=== PATIENT | male | born 1960 | race Caucasian/White ===

== ENCOUNTER 2017-01-24 02:27 | Emergency (ER) | payer SELFPAY ==
[~2017-01-24] VITALS: Ht 175.3 cm; Wt 80.0 kg
[~2017-01-24 02:27] MED LIST: BACT800T5 PO; MECL12.574 PO; ZOFR4TAB PO
[2017-01-24 02:29] VITALS: BP 147/93; PULSE 56; RESP 16; O2SAT 97
[2017-01-24] MEDS ORDERED: TETANUS/DIPHTHERIA TOXOID ADULT 0.5 ML VIAL IM ONE (03:15)
[2017-01-24] MEDS ORDERED: CLINDAMYCIN INJ 600 MG in SODIUM CHLORIDE 0.9% INJ 100 ML IV ONE (03:15)
--- NOTE | 2017-01-24 03:15 | PD ---
HPI Chief Complaint: Injury Time Seen by Provider: 03:11 Travel History International Travel<30 days: No Contact w/Intl Traveler<30days: No Traveled to known affect area: No History of Present Illness HPI 57-year-old [id number] white male presents to emergency department with a 2 day history of right index finger pain and swelling. He does not recall any injury. 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 He states that he had pain on both the volar and dorsal surfaces of the index finger more so at the PIP joint. He denies any fever or chills. He has had a cold here recently. This has consisted of runny nose, cough and congestion. No prior injury. Not up-to-date. PFSH Past Medical History Narrative Medical Anxiety, depression, borderline blood pressure Anxiety: Yes Depression: Yes Diminished Hearing: No Hypertension: Yes Psychiatric: Yes Immunizations Current: Yes Tetanus Vaccination: Unknown Influenza Vaccination: No Past Surgical History Abdominal Surgery: Yes (HERNIA REPAIR) Social History Alcohol Use: Yes (OCCASIONAL) Tobacco Use: Yes (1 ppd) Substance Use: No Allergies-Medications (Allergen,Severity, Reaction): Coded Allergies: No Known Allergies (Verified , 01/24/17) Reported Meds & Prescriptions Reported Meds & Active Scripts Active No Active Prescriptions or Reported Medications Review of Systems Except as stated in HPI: all other systems reviewed are Neg Physical Exam Narrative GENERAL: Well-developed, well-nourished in no acute distress. Nontoxic appearing. HEAD: Normocephalic, atraumatic. EYES: Pupils equal round and reactive. Extraocular motions intact. No scleral icterus. No injection or drainage. ENT: TMs clear without erythema. The external auditory canals clear. Nose: clear . Posterior pharynx is pink and moist. No tonsillar edema or exudate. Uvula midline. Airway patent. NECK: Trachea midline.Supple, nontender, moves head freely. No central bony tenderness or spasm. CARDIOVASCULAR: Regular rate and rhythm without murmurs, gallops, or rubs. RESPIRATORY: Clear to auscultation. Breath sounds equal bilaterally. No wheezes , rales, or rhonchi. GASTROINTESTINAL: Abdomen soft, non-tender, nondistended. No hepato-splenomegaly , or palpable masses. No guarding. EXTREMITIES: No clubbing, cyanosis. Examination the right hand reveals mild to moderate swelling of the index finger with tenderness to the volar surface of the PIP joint and mild tenderness on the dorsal surface. He has limited flexion but full extension. No pain at the MCP joint. Mild discomfort at the DIP. There is no fluctuance or pointing. There is no significant erythema or warmth. He has good Refill. No evidence of any puncture wounds. BACK: Nontender without deformity or crepitance. No flank tenderness. Data Data Last Documented VS Vital Signs Date Time Temp Pulse Resp B/P Pulse Ox O2 Delivery O2 Flow Rate FiO2 01/24/17 02:45 16 01/24/17 02:29 56 147/93 97 Orders Complete Blood Count With Diff (01/24/17 03:04) Basic Metabolic Panel (Bmp) (01/24/17 03:04) C-Reactive Protein (Crp) (01/24/17 03:04) Clindamycin Inj (Cleocin Inj) (01/24/17 03:15) Finger ([id number]) (01/24/17 03:04) Tetanus/Diphtheria Tox Adult (Tetanus/Di (01/24/17 03:15) Labs Laboratory Tests Test 01/24/17 03:20 White Blood Count 9.8 TH/MM3 Red Blood Count 4.68 MIL/MM3 Hemoglobin 13.7 GM/DL Hematocrit 39.2 % Mean Corpuscular Volume 83.9 FL Mean Corpuscular Hemoglobin 29.3 PG Mean Corpuscular Hemoglobin 34.9 % Concent Red Cell Distribution Width 13.3 % Platelet Count 187 TH/MM3 Mean Platelet Volume 9.2 FL Neutrophils (%) (Auto) 72.3 % Lymphocytes (%) (Auto) 16.2 % Monocytes (%) (Auto) 9.6 % Eosinophils (%) (Auto) 1.5 % Basophils (%) (Auto) 0.4 % Neutrophils # (Auto) 7.1 TH/MM3 Lymphocytes # (Auto) 1.6 TH/MM3 Monocytes # (Auto) 0.9 TH/MM3 Eosinophils # (Auto) 0.2 TH/MM3 Basophils # (Auto) 0.0 TH/MM3 CBC Comment DIFF FINAL Differential Comment Sodium Level 140 MEQ/L Potassium Level 3.8 MEQ/L Chloride Level 106 MEQ/L Carbon Dioxide Level 27.4 MEQ/L Anion Gap 7 MEQ/L Blood Urea Nitrogen 18 MG/DL Creatinine 1.08 MG/DL Estimat Glomerular Filtration 70 ML/MIN Rate Random Glucose 85 MG/DL Calcium Level 8.7 MG/DL C-Reactive Protein 0.94 MG/DL MDM Medical Decision Making Medical Screen Exam Complete: Yes Emergency Medical Condition: Yes Medical Record Reviewed: Yes Interpretation(s) Laboratory Tests Test 01/24/17 03:20 White Blood Count 9.8 TH/MM3 Red Blood Count 4.68 MIL/MM3 Hemoglobin 13.7 GM/DL Hematocrit 39.2 % Mean Corpuscular Volume 83.9 FL Mean Corpuscular Hemoglobin 29.3 PG Mean Corpuscular Hemoglobin 34.9 % Concent Red Cell Distribution Width 13.3 % Platelet Count 187 TH/MM3 Mean Platelet Volume 9.2 FL Neutrophils (%) (Auto) 72.3 % Lymphocytes (%) (Auto) 16.2 % Monocytes (%) (Auto) 9.6 % Eosinophils (%) (Auto) 1.5 % Basophils (%) (Auto) 0.4 % Neutrophils # (Auto) 7.1 TH/MM3 Lymphocytes # (Auto) 1.6 TH/MM3 Monocytes # (Auto) 0.9 TH/MM3 Eosinophils # (Auto) 0.2 TH/MM3 Basophils # (Auto) 0.0 TH/MM3 CBC Comment DIFF FINAL Differential Comment Sodium Level 140 MEQ/L Potassium Level 3.8 MEQ/L Chloride Level 106 MEQ/L Carbon Dioxide Level 27.4 MEQ/L Anion Gap 7 MEQ/L Blood Urea Nitrogen 18 MG/DL Creatinine 1.08 MG/DL Estimat Glomerular Filtration 70 ML/MIN Rate Random Glucose 85 MG/DL Calcium Level 8.7 MG/DL C-Reactive Protein 0.94 MG/DL Differential Diagnosis MDM: High Differential diagnoses: Abscess, folliculitis, cellulitis, lymphangitis, abrasion, contact dermatitis, gout Narrative Course IV access is obtained. Routine laboratory tests including CBC, chemistry and CRP. Patient's given 600 mg of clindamycin IV. X-ray of the right index finger. Tetanus immunization. Laboratory testing shows only a mildly elevated CRP. White count is normal. Patient's been given his antibiotics. He's been instructed to recheck in 48 hours the primary care doctor or return to the ER if any worsening problems. This is right index Finger cellulitis Diagnosis Primary Impression: Cellulitis of right index finger Patient Instructions: General Instructions Additional Instructions: Rest. Elevation. Medications as directed. Recheck in 48 hours with a primary care doctor or return to the ER if symptoms worsen. Med/Other Pt SpecificInfo: Prescription(s) given Scripts Diclofenac Sodium DR 75 Mg Tabdr75 Mg PO BID #20 TAB Prov:Mary Tovar MD 01/24/17 Clindamycin (Cleocin)150 Mg Liw691 Mg PO Q6H #80 CAP Prov:Mary Tovar MD 01/24/17 Disposition: 01 DISCHARGE HOME Condition: Stable Austin Ortega Jan 24, 2017 03:15
[2017-01-24 03:31] LABS: AUTOMATED NEUTROPHIL # 7.1 TH/MM3 (1.8-7.7); BASOPHIL % 0.4 % (0.0-2.0); EOSINOPHIL # 0.2 TH/MM3 (0-0.4); EOSINOPHIL % 1.5 % (0.0-4.0); HEMATOCRIT 39.2 % (39.0-51.0); HEMO FLAGS DIFF FINAL; LYMPH % 16.2 % (9.0-44.0); LYMPHOCYTE # 1.6 TH/MM3 (1.0-4.8); MEAN CELL VOLUME 83.9 FL (80.0-100.0); MEAN CORPUSCULAR HEMOGLOBIN 29.3 PG (27.0-34.0); MEAN CORPUSCULAR HGB CONC 34.9 % (32.0-36.0); MONO % 9.6 % (0.0-8.0); NEUT % 72.3 % (16.0-70.0); PLATELET COUNT 187 TH/MM3 (150-450); RED BLOOD COUNT 4.68 MIL/MM3 (4.50-5.90); RED CELL DISTRIBUTION WIDTH 13.3 % (11.6-17.2); WHITE BLOOD COUNT 9.8 TH/MM3 (4.0-11.0)
[2017-01-24 03:46] LABS: BICARBONATE 27.4 MEQ/L (21.0-32.0); POTASSIUM 3.8 MEQ/L (3.5-5.1)
[2017-01-24] MEDS ORDERED: CLIN150 PO (03:59)
[2017-01-24] MEDS ORDERED: DICL75TA PO (03:59)
--- NOTE | 2017-01-24 04:46 | RADRPT ---
EXAM DATE/TIME: 01/24/2017 03:46 [facility] COMPARISON: No previous studies available for comparison. INDICATIONS : Finger injury. Swelling. MEDICAL HISTORY : None. SURGICAL HISTORY : None. ENCOUNTER: Initial ACUITY: 1 day PAIN SCORE: 7/10 LOCATION: Right upper extremity FINDINGS: There is soft tissue swelling of the right second finger. No acute bony abnormalities. No fracture or dislocation. CONCLUSION: 1. Soft tissue swelling of the right second finger. No acute bone findings. Austin Richardson MD on January 24, 2017 at 4:41 Board Certified Radiologist. This report was verified electronically.
== END 2017-01-24 04:06 | disposition home or self-care (01) ==
LOC: NEPB 02:27
DX: L03.011 Cellulitis of right finger (principal); Z23 Encounter for immunization; I10 Essential (primary) hypertension
CPT/HCPCS: 73140; 80048; 85025; 86140; 90471; 90714

== ENCOUNTER 2017-01-29 11:14 | Emergency (ER) | payer SELFPAY ==
[~2017-01-29] VITALS: Ht 175.3 cm; Wt 81.8 kg
[~2017-01-29 11:14] MED LIST changes: -BACT800T5 PO; +CLIN150 PO; +DICL75TA PO; -MECL12.574 PO; -ZOFR4TAB PO
[2017-01-29 11:17] VITALS: BP 158/93; PULSE 66; RESP 16; TEMP 97.3; O2SAT 95
--- NOTE | 2017-01-29 11:48 | PD ---
HPI Chief Complaint: Edema Time Seen by Provider: 11:47 Travel History International Travel<30 days: No Contact w/Intl Traveler<30days: No Traveled to known affect area: No History of Present Illness HPI 57-year-old male presents to emergency department for evaluation of persistent swelling of his right index finger. Patient was seen 5 days ago, prescribed clindamycin, however he did not fill this. He states that he is instructed to return if the swelling persisted. Patient states that has not gone down. It has not gotten worse. He says it seems to occur when he uses that hand more often. Denies any fever or chills. No known injury. States that the finger is painful rates it a 6 out of 10. History Past Medical Histgory Medical History: Denies Significant Hx Social History Alcohol Use: Yes (OCCASIONAL) Tobacco Use: Yes (1 ppd) Allergies-Medications (Allergen,Severity, Reaction): Coded Allergies: No Known Allergies (Verified , 01/29/17) Reported Meds & Prescriptions Reported Meds & Active Scripts Active Diclofenac Sodium DR (Diclofenac Sodium) 75 Mg Tabdr 75 Mg PO BID Cleocin (Clindamycin HCl) 150 Mg Cap 300 Mg PO Q6H Review of Systems Except as stated in HPI: all other systems reviewed are Neg Physical Exam Narrative GENERAL: Well-nourished, well-developed patient ambulatory and in no acute distress SKIN: Warm and dry. HEAD: Normocephalic. EYES: No scleral icterus. No injection or drainage. NECK: Supple, trachea midline. No JVD or lymphadenopathy. CARDIOVASCULAR: Regular rate and rhythm without murmurs, gallops, or rubs. RESPIRATORY: Breath sounds equal bilaterally. No accessory muscle use. MUSCULOSKELETAL: No cyanosis. Mild edema of the right second digit. Patient has full flexion and extension. He can flex against resistance as well as extend. Sensation intact distal affected digit. Cap refill within normal limits. BACK: Nontender without obvious deformity. No CVA tenderness. Data Data Last Documented VS Vital Signs Date Time Temp Pulse Resp B/P Pulse Ox O2 Delivery O2 Flow Rate FiO2 01/29/17 11:17 97.3 66 16 158/93 95 Room Air MDM Medical Screen Exam Complete: Yes Emergency Medical Condition: No Differential Diagnosis R INDEX FINGER SWELLING Narrative Course 57-year-old male presents to emergency department for evaluation of persistent swelling of the right second digit. Patient has not taken the medication as he was already prescribed. The edema has not worsened but has not improved. He is otherwise asymptomatic. His vital signs are stable. I have advised that the patient take his antibiotic as prescribed and to follow-up with primary care provider. I also told him this may be an arthritic type of pain due to his report of worsening with frequent use. I advised that he attempted over-the -counter anti-inflammatory such as ibuprofen. He agrees with this plan of care. At this time there are no urgent or emergent needs for medical intervention identified. A medical screening exam was performed: At the time of evaluation the presenting medical condition was determined not to be of an emergent nature. The patient was given the option of receiving additional care, but declined. Patient was given options for additional community resources from which to obtain care. The Patient Has Been advised to seek medical attention for their presenting complaint. The patient has been advised to return to the ER at any time if an emergent condition develops. Primary Impression: Cellulitis of right index finger Additional Impression: Encounter for medical screening examination Condition: Stable Erika Colindres Jan 29, 2017 11:47
== END 2017-01-29 12:16 | disposition left against medical advice (07) ==
LOC: NEPB 11:14
DX: L03.011 Cellulitis of right finger (principal)
CPT/HCPCS: 99281

== ENCOUNTER 2017-09-26 15:13 | Emergency (ER) | payer SELFPAY ==
[~2017-09-26] VITALS: Ht 175.3 cm; Wt 78.0 kg
[2017-09-26 15:14] VITALS: BP 137/96; PULSE 86; RESP 18; TEMP 98.5; O2SAT 96
--- NOTE | 2017-09-26 15:48 | PD ---
HPI Chief Complaint: Musculoskeletal Complaint Time Seen by Provider: 15:44 Travel History International Travel<30 days: No Contact w/Intl Traveler<30days: No Traveled to known affect area: No History of Present Illness HPI 57-year-old male here for evaluation of left knee pain. Symptoms started 2-3 weeks ago. He reports an aching pain in his left knee that is worse when walking. He has been using Advil and crutches which has helped some. He reports occasionally it feels like his knee is "locked up." He reports that he had similar pain about 2 years ago which eventually resolved. He denies any acute injury or strenuous activity. He reports that he has a primary care physician at the [facility]. He has no other complaints at this time. History Social History Alcohol Use: Yes (OCCASIONAL) Tobacco Use: Yes (1 ppd) Allergies-Medications (Allergen,Severity, Reaction): Coded Allergies: No Known Allergies (Verified Adverse Reaction, Unknown, 09/26/17) Reported Meds & Prescriptions Reported Meds & Active Scripts Active Diclofenac Sodium DR (Diclofenac Sodium) 75 Mg Tabdr 75 Mg PO BID Cleocin (Clindamycin HCl) 150 Mg Cap 300 Mg PO Q6H Review of Systems General / Constitutional: No: Fever, Chills Musculoskeletal: Positive: Pain, Other (positive for pain with walking, range of motion) Skin: Positive Other (denies bruising, open wounds) Physical Exam Narrative GENERAL: Well-nourished male in no acute distress SKIN: Warm and dry. CARDIOVASCULAR: Regular rate and rhythm. No murmur appreciated. RESPIRATORY: No accessory muscle use. Clear to auscultation. Breath sounds equal bilaterally. MUSCULOSKELETAL: No obvious deformities. There is no specific bony tenderness to palpation. There is no joint effusion. The patient maintains full flexion and extension of his left knee albeit with some guarding. There is no crepitus. NEUROLOGICAL: Awake and alert. No obvious cranial nerve deficits. Motor grossly within normal limits. Normal speech. Data Data Last Documented VS Vital Signs Date Time Temp Pulse Resp B/P (MAP) Pulse Ox O2 Delivery O2 Flow Rate FiO2 09/26/17 15:14 98.5 86 18 137/96 (110) 96 Room Air MDM Medical Screen Exam Complete: Yes Emergency Medical Condition: No Narrative Course Based on the patient's history, the concern would be for a chronic meniscal tear. It was discussed with the patient that he should follow up with his primary care physician and likely obtain outpatient MRI imaging. Emergent imaging is not necessary at this time. A medical screening exam was performed: At the time of evaluation the presenting medical condition was determined not to be of an emergent nature. The patient was given the option of receiving additional care, but declined. Patient was given options for additional community resources from which to obtain care. The Patient Has Been advised to seek medical attention for their presenting complaint. The patient has been advised to return to the ER at any time if an emergent condition develops. Primary Impression: Encounter for medical screening examination Colten Klein Sep 26, 2017 15:48
== END 2017-09-26 15:54 | disposition left against medical advice (07) ==
LOC: NEPK 15:13
DX: Z00.00 Encounter for general adult medical examination without abnormal findings (principal); M25.562 Pain in left knee; Z72.0 Tobacco use
CPT/HCPCS: 99281

== ENCOUNTER 2018-04-28 19:55 | Emergency (ER) | payer SELFPAY ==
[~2018-04-28] VITALS: Ht 175.3 cm; Wt 81.5 kg
[2018-04-28 20:33] VITALS: BP 134/78; PULSE 68; RESP 16; TEMP 97.4; O2SAT 98
--- NOTE | 2018-04-28 21:07 | PD ---
HPI Chief Complaint: Musculoskeletal Complaint Time Seen by Provider: 21:07 Travel History International Travel<30 days: No Contact w/Intl Traveler<30days: No Traveled to known affect area: No History of Present Illness HPI 58-year-old male came to the emergency room with history of right leg swelling and redness for past 4 days. Patient says that 5 days ago he had applied a knee brace and towards the end of the night he noticed that his leg was swelling up distal to the brace. He noticed that the brace had folded upon itself and he took the brace off. But since then the swelling has not gone down neither has the redness. He has been taking ibuprofen/Advil for the pain but it is not helping. He was concerned if he could be developing a blood clot in there. No previous history of DVT. No history of chest pain or shortness of breath. Vital signs are relatively stable. No history of fever or chills. PFSH Past Medical History Narrative Medical List of his past medical, surgical, social and family history is reviewed from the nursing note. Anxiety: Yes Depression: Yes Diminished Hearing: No Hypertension: Yes Psychiatric: Yes Immunizations Current: Yes Past Surgical History Abdominal Surgery: Yes (HERNIA REPAIR) Social History Alcohol Use: No Tobacco Use: No Substance Use: No Allergies-Medications (Allergen,Severity, Reaction): Coded Allergies: No Known Allergies (Verified Adverse Reaction, Unknown, 09/26/17) Comments No known drug allergies. Reported Meds & Prescriptions Reported Meds & Active Scripts Active Keflex (Cephalexin) 500 Mg Cap 500 Mg PO Q8H Diclofenac Sodium DR (Diclofenac Sodium) 75 Mg Tabdr 75 Mg PO BID Cleocin (Clindamycin HCl) 150 Mg Cap 300 Mg PO Q6H Narrative Medication List of his home medications reviewed from the nursing note Review of Systems Except as stated in HPI: all other systems reviewed are Neg Musculoskeletal: Positive: Edema Physical Exam Narrative GENERAL: Awake, alert, mild distress SKIN: Focused skin assessment warm/dry. Right leg distal half of tib-fib has redness and edema. This extends up to his ankle. It is nontender and slightly warm to touch. Distal pulsation and sensation is intact. HEAD: Atraumatic. Normocephalic. EYES: Pupils equal and round. No scleral icterus. No injection or drainage. ENT: No nasal bleeding or discharge. Mucous membranes pink and moist. NECK: Trachea midline. No JVD. CARDIOVASCULAR: Regular rate and rhythm. No murmur appreciated. RESPIRATORY: No accessory muscle use. Clear to auscultation. Breath sounds equal bilaterally. GASTROINTESTINAL: Abdomen soft, non-tender, nondistended. Hepatic and splenic margins not palpable. MUSCULOSKELETAL: No obvious deformities. No clubbing. No cyanosis. No edema. NEUROLOGICAL: Awake and alert. No obvious cranial nerve deficits. Motor grossly within normal limits. Normal speech. PSYCHIATRIC: Appropriate mood and affect; insight and judgment normal. Data Data Last Documented VS Vital Signs Date Time Temp Pulse Resp B/P (MAP) Pulse Ox O2 Delivery O2 Flow Rate FiO2 04/28/18 20:33 97.4 68 16 134/78 (96) 98 Orders Orders Complete Blood Count With Diff (04/28/18 21:15) Basic Metabolic Panel (Bmp) (04/28/18 21:15) Us Leg Venous Doppler (04/28/18 ) Cephalexin (Keflex) (04/28/18 22:30) Ed Discharge Order (04/28/18 22:17) Labs Laboratory Tests Test 04/28/18 21:50 White Blood Count 8.4 TH/MM3 Red Blood Count 4.54 MIL/MM3 Hemoglobin 13.1 GM/DL Hematocrit 38.5 % Mean Corpuscular Volume 85.0 FL Mean Corpuscular Hemoglobin 28.9 PG Mean Corpuscular Hemoglobin Concent 34.1 % Red Cell Distribution Width 12.9 % Platelet Count 222 TH/MM3 Mean Platelet Volume 9.0 FL Neutrophils (%) (Auto) 71.4 % Lymphocytes (%) (Auto) 16.7 % Monocytes (%) (Auto) 8.4 % Eosinophils (%) (Auto) 3.1 % Basophils (%) (Auto) 0.4 % Neutrophils # (Auto) 6.0 TH/MM3 Lymphocytes # (Auto) 1.4 TH/MM3 Monocytes # (Auto) 0.7 TH/MM3 Eosinophils # (Auto) 0.3 TH/MM3 Basophils # (Auto) 0.0 TH/MM3 CBC Comment DIFF FINAL Differential Comment Blood Urea Nitrogen 20 MG/DL Creatinine 1.05 MG/DL Random Glucose 129 MG/DL Calcium Level 9.0 MG/DL Sodium Level 141 MEQ/L Potassium Level 3.8 MEQ/L Chloride Level 105 MEQ/L Carbon Dioxide Level 25.8 MEQ/L Anion Gap 10 MEQ/L Estimat Glomerular Filtration Rate 73 ML/MIN MDM Medical Decision Making Medical Screen Exam Complete: Yes Emergency Medical Condition: Yes Medical Record Reviewed: Yes Differential Diagnosis DVT, cellulitis, unilateral edema Narrative Course 9:45 PM awaiting for blood test result. I have ordered an ultrasound of the leg to rule out DVT. 10:18 PM ultrasound is negative for DVT. Blood test results are back and within acceptable limit. I will start him on Keflex for possible cellulitis given the redness and warmth of the skin. He will be discharged home and follow -up with primary care. Procedures EKG Prior to Arrival: No Diagnosis Primary Impression: Cellulitis of leg Qualified Codes: L03.115 - Cellulitis of right lower limb Referrals: Primary Care Physician 3 days Additional Instructions: Take the medication as per the prescription direction. Follow-up with your primary care next couple days. Return to the ER if condition worsens any other new concerns. Keep the leg elevated to keep the swelling down. Med/Other Pt SpecificInfo: Prescription(s) given Scripts Cephalexin (Keflex) 500 Mg Cap 500 MG PO Q8H for Infection, #30 CAP 0 Refills Prov: Xander Morales MD 04/28/18 Disposition: 01 DISCHARGE HOME Condition: Stable Xander Morales MD Apr 28, 2018 21:07
--- NOTE | 2018-04-28 21:53 | RADRPT ---
EXAM DATE: 04/28/2018 9:43 PM EDT AGE/SEX: 58 years / Male INDICATIONS: Right leg swelling. CLINICAL DATA: This is the patient's initial encounter. Patient reports that signs and symptoms have been present for 1 week and indicates a pain score of 1/10. MEDICAL/SURGICAL HISTORY: Hypertension. Depression. Anxiety. . Hernia repair. COMPARISON: No prior [place] exams available for comparison. No external comparison. TECHNIQUE: Venous ultrasound of both lower extremities was performed from the inguinal ligament to t he proximal calf. Real-time, color Doppler and spectral tracing, compression and augmentation techni ques were used. FINDINGS: There is normal compressibility of the deep venous system from the inguinal region to the proximal ca lf. No echogenic clot is seen in the lumen of the common femoral, femoral, popliteal, and posterior tibial veins. There is a normal response of the venous system to proximal and distal augmentation an d respiration. CONCLUSION: 1. No evidence of deep venous thrombosis within the right lower extremity. Electronically signed by: Kieran Bains MD 04/28/2018 9:52 PM EDT
[2018-04-28 22:00] LABS: BASOPHIL % 0.4 % (0.0-2.0); EOSINOPHIL # 0.3 TH/MM3 (0-0.4); EOSINOPHIL % 3.1 % (0.0-4.0); HEMATOCRIT 38.5 % (39.0-51.0); HEMOGLOBIN 13.1 GM/DL (13.0-17.0); LYMPH % 16.7 % (9.0-44.0); LYMPHOCYTE # 1.4 TH/MM3 (1.0-4.8); MEAN CORPUSCULAR HEMOGLOBIN 28.9 PG (27.0-34.0); MEAN CORPUSCULAR HGB CONC 34.1 % (32.0-36.0); MONO % 8.4 % (0.0-8.0); MONOCYTE # 0.7 TH/MM3 (0-0.9); NEUT % 71.4 % (16.0-70.0); PLATELET COUNT 222 TH/MM3 (150-450); RED BLOOD COUNT 4.54 MIL/MM3 (4.50-5.90); RED CELL DISTRIBUTION WIDTH 12.9 % (11.6-17.2); WHITE BLOOD COUNT 8.4 TH/MM3 (4.0-11.0)
[2018-04-28 22:16] LABS: BICARBONATE 25.8 MEQ/L (21.0-32.0); CREATININE 1.05 MG/DL (0.60-1.30)
[2018-04-28] MEDS ORDERED: CEPH-460 PO (22:19)
[2018-04-28] MEDS ORDERED: CEPHALEXIN MONOHYDRATE 500 MG CAP PO ONE (22:30)
== END 2018-04-28 23:23 | disposition home or self-care (01) ==
LOC: NEPD 19:55
DX: L03.115 Cellulitis of right lower limb (principal); F41.9 Anxiety disorder, unspecified; F32.9 Major depressive disorder, single episode, unspecified; I10 Essential (primary) hypertension
CPT/HCPCS: 80048; 85025; 93971; 99284